=== PATIENT | female | born 2000 | race Caucasian/White ===

== ENCOUNTER → 2023-05-10 08:53 | Outpatient (BNVA) | payer MEDICAID, SELFPAY | PROVIDERS: Visit Provider Nurse Practitioner Women's Health | DX: Z34.90 Encounter for supervision of normal pregnancy, unspecified, unspecified trimester (principal) | CPT/HCPCS: 80307; 81025; 84443; 85025; 86592; 86762; 86803; 86850; 86900; 87077; 87086; 87184; 87340; 87806 ==

== ENCOUNTER → 2023-05-30 11:10 | Outpatient (BNVA) | payer MEDICAID, SELFPAY | PROVIDERS: Visit Provider Obstetrics & Gynecology | DX: Z36.87 Encounter for antenatal screening for uncertain dates (principal) | CPT/HCPCS: 76815 ==

== ENCOUNTER → 2023-06-08 08:15 | Outpatient (BNVA) | payer MEDICAID, SELFPAY | PROVIDERS: Visit Provider Nurse Practitioner Women's Health | DX: Z34.90 Encounter for supervision of normal pregnancy, unspecified, unspecified trimester (principal) | CPT/HCPCS: 81000; 82105; 87077; 87086; 87184 ==

== ENCOUNTER → 2023-06-20 07:59 | Outpatient (BNVA) | payer MEDICAID, SELFPAY | PROVIDERS: Visit Provider Obstetrics & Gynecology | DX: O09.899 Supervision of other high risk pregnancies, unspecified trimester (principal); Z3A.00 Weeks of gestation of pregnancy not specified | CPT/HCPCS: 76805 ==

== ENCOUNTER → 2023-07-18 08:08 | Outpatient (BNVA) | payer MEDICAID, SELFPAY | PROVIDERS: Visit Provider Nurse Practitioner Women's Health | DX: Z36.9 Encounter for antenatal screening, unspecified | CPT/HCPCS: 76816 ==

== ENCOUNTER → 2023-07-20 07:55 | Outpatient (BNVA) | payer MEDICAID, SELFPAY | PROVIDERS: Visit Provider Obstetrics & Gynecology | DX: O09.899 Supervision of other high risk pregnancies, unspecified trimester (principal) | CPT/HCPCS: 81000; 82950 ==

== ENCOUNTER → 2023-08-04 07:54 | Outpatient (BNVA) | payer MEDICAID, SELFPAY | PROVIDERS: Visit Provider Obstetrics & Gynecology | DX: O09.899 Supervision of other high risk pregnancies, unspecified trimester (principal) | CPT/HCPCS: 81000; 85025 ==

== ENCOUNTER → 2023-08-17 07:54 | Outpatient (BNVA) | payer MEDICAID, SELFPAY | PROVIDERS: Visit Provider Obstetrics & Gynecology | DX: O09.899 Supervision of other high risk pregnancies, unspecified trimester (principal) | CPT/HCPCS: 81000; 85025 ==

== ENCOUNTER → 2023-08-28 08:14 | Outpatient (BNVA) | payer MEDICAID, SELFPAY | PROVIDERS: Visit Provider Obstetrics & Gynecology | DX: Z36.9 Encounter for antenatal screening, unspecified (principal) | CPT/HCPCS: 76816 ==

== ENCOUNTER → 2023-09-07 08:03 | Outpatient (BNVA) | payer MEDICAID, SELFPAY | PROVIDERS: Visit Provider Obstetrics & Gynecology | DX: O09.899 Supervision of other high risk pregnancies, unspecified trimester (principal) | CPT/HCPCS: 81000 ==

== ENCOUNTER 2023-10-09 01:33 | Outpatient (CLI) | payer MEDICAID, SELFPAY ==
[2023-10-09 01:33] VITALS: BMI 36.2
[2023-10-09 01:46] VITALS: BP 128/80; PULSE 80
[2023-10-09 02:02] VITALS: BP 116/80; PULSE 82
[2023-10-09 02:33] VITALS: BP 117/80; PULSE 92
[2023-10-09 02:40] VITALS: BP 130/88; PULSE 88
[2023-10-09 02:55] VITALS: BP 130/80; PULSE 88
== END 2023-10-09 02:52 | disposition home or self-care (01) ==
LOC: OPOB 01:42 → OBGYN 01:43
PROVIDERS: Visit Provider Obstetrics & Gynecology
DX: O26.899 Other specified pregnancy related conditions, unspecified trimester (principal); Z3A.00 Weeks of gestation of pregnancy not specified; R10.9 Unspecified abdominal pain
CPT/HCPCS: 59025; 99211

== ENCOUNTER → 2023-10-19 08:25 | Outpatient (BNVA) | payer MEDICAID, SELFPAY | PROVIDERS: Visit Provider Obstetrics & Gynecology | DX: O09.899 Supervision of other high risk pregnancies, unspecified trimester (principal) | CPT/HCPCS: 81000; 87081 ==

== ENCOUNTER 2023-10-26 10:24 | Outpatient (CLI) | payer MEDICAID, SELFPAY ==
[2023-10-26 10:25] VITALS: BMI 35.2
[2023-10-26 10:39] VITALS: BP 133/88; PULSE 120
[2023-10-26 11:00] VITALS: BP 125/74; PULSE 101
[2023-10-26 11:19] VITALS: BP 120/75; PULSE 82
[2023-10-26 11:55] VITALS: BP 129/74; PULSE 84
[2023-10-26 12:31] VITALS: BP 129/74; PULSE 84
== END 2023-10-26 12:32 | disposition home or self-care (01) ==
LOC: OPOB 10:25 → OBGYN 10:32
PROVIDERS: Visit Provider Obstetrics & Gynecology
DX: O26.899 Other specified pregnancy related conditions, unspecified trimester (principal); Z3A.00 Weeks of gestation of pregnancy not specified; R10.9 Unspecified abdominal pain
CPT/HCPCS: 59025; 81000; 99211

== ENCOUNTER 2023-11-01 05:26 | Inpatient (IN) | payer MEDICAID, SELFPAY ==
[2023-11-01] VITALS (19 sets, daily range): BP systolic 106–151; BP diastolic 72–87; PULSE 77–106; RESP 18; TEMP 35.1–36.7; O2SAT 98; BMI 36.1
[2023-11-01] MEDS: lactated ringers 1,000 ML 999 ML IV (06:15)
--- NOTE | 2023-11-01 06:50 | P.HP_ITS ---
Providers/Chief Complaint 2 Admitting Physician: Yahir Gregory MD Primary SHADE BANDER: Ike William MD Chief Complaint: contractions HPI SHADE BANDER History of Present Illness Chuyita Celestin is a 23 year old female EDC November 07, 2023 at 39 w 1 d no complications h/o x one presented to L&D c/o painful uterine contractions Present Details : 2 Para: 1 Labs Rubella: Immune RPR: Negative GBS: Negative Medications/Allergies Home Medications Medication Instructions Recorded Confirmed Last Taken Type PNV 153-FA 400 mcg-om3 35 mg-dha tab PO 06/08/23 10/26/23 Unknown History 25 mg-epa 5 mg-fish oil chew tablet ( Gummies) Allergies Allergy/AdvReac Type Severity Reaction Status Date / Time No Known Allergies Allergy Verified 11/01/23 07:32 PFSH SHADE BANDER 2 PFSH: Medical History No pertinent past medical history neghx: htn,dm,thyroid,dvt/pe PCP: None Surgical History History of tonsillectomy and adenoidectomy Family History Grandfather Breast cancer Colon cancer Stroke Mother Uterine cancer Grandmother Hypertension Diabetes Stroke Thyroid disease Denies family history of Ovarian cancer Prostate cancer Heart disease Hyperlipidemia Social History Smoking and tobacco/nicotine status: current every day tobacco/nicotine user History History History 2 2 Term 0 1 Miscarriages/Ectopic 0 Living Children 1 Care YUMIKO Calculator 2 Estimated Delivery Date Method Current WG Current Estimate 11/07/23 LMP (Certain) 39w 1d Other Estimates 11/11/23 Ultrasound #1 38w 4d Specific Issues/Plans * Early delivery?? req records 06/08/23 * UTI at 14 weeks; treated with keflex; mora at 18 wks * Tobacco use * Marijuana use * Late care Vitals/I&O/Wt Last Vital Signs Temp 95.2 F L 11/01/23 06:19 Pulse 96 11/01/23 09:36 BP 122/72 11/01/23 09:36 O2 Del Method Room Air 11/01/23 06:36 10/31/23 11/01/23 11/01/23 22:59 06:59 14:59 Intake Total 1500 / 1500 Balance 1500 / 1500 Weight last 48 hrs Weight 217 lb Physical Exam 2 Narrative: Weight 217 lbs; 5'5 VS normal General: in discomfort due to uterine contractions; awake, alert HEENT: normal Lungs: clear Cor: RRR Abd: nontender Cervix: 6 cm / 90% / -1 / cephalic Ext: normal External monitor: heart tracing good variability, + accelerations Data 11/01/23 06:51 Results Labs OB ([facility]): 2 Obstetrics US 08/28/23 Blood Type O Positive 11/01/23 Antibody Screen Negative 11/01/23 Hct 43.2 % (36-47) 11/01/23 Hgb 13.70 g/dL (11.27-16.99) 11/01/23 Rho(D) Type Rh positive 11/01/23 Plt Count 136 10^3/cmm (157-399) L 11/01/23 Hep Bs Antigen Non-reactive (Nonreactive) 05/10/23 Hepatitis C Antibody Non-reactive (Nonreactive) 05/10/23 Rubella IgG Antibody 373.3 IU/mL (0.0-10.0) H 05/10/23 RPR Nonreactive (Nonreactive) 05/10/23 HIV 1&2 Ab & HIV 1 Ag Non-reactive (Non-Reactiv) 05/10/23 TSH 2.37 uIU/mL (0.27-4.20) 05/10/23 Cystic Fibrosis Screen Negative 06/08/23 Gest Glucose Tolerance 115 mg/dL (70-139) 07/20/23 HCG, Qual Positive (Negative) H 05/10/23 Urine Opiates Screen Negative ng/mL (Negative) 11/01/23 Ur Barbiturates Screen Negative ng/mL (Negative) 11/01/23 Ur Phencyclidine Scrn Negative ng/mL (Negative) 11/01/23 Ur Amphetamines Screen Negative ng/mL (Negative) 11/01/23 U Benzodiazepines Scrn Negative ng/mL (Negative) 11/01/23 Urine Cocaine Screen Negative ng/mL (Negative) 11/01/23 U Marijuana (THC) Screen Positive ng/mL (Negative) H Micro Urine Specimen 06/08/23 A&P Assessment and plan (1) Active labor at term: 39 w 1 d active labor anticipate vaginal delivery fetus reassuring Attestations 2 Medical Necessity Statement*: patient at term in active labor Coding Level of Care Code Acute Code for Chg Fwd Diagnoses Active labor at term Time Spent (min) 30
[2023-11-01 06:59] LABS: Basophils # 0.1 10^3/uL (0.0-0.1); Basophils % 0.3 %; Eosinophils # 0.1 10^3/uL (0.0-0.8); Eosinophils % 0.2 %; Hematocrit 43.2 % (36-47); Lymphocytes # 2.8 10^3/uL (0.8-4.8); Lymphocytes % 13.7 %; Mean Corpuscular HGB Conc 31.7 g/dL (30-55); Mean Corpuscular Hemoglobin 29.1 pg (27-33); Mean Corpuscular Volume 91.7 fl (85-98); Mean Platelet Volume 13.9 fL (7.4-10.4); Monocytes # 1.8 10^3/uL (0.2-0.9); Neutrophils # 15.43 10^3/uL (1.8-7.7); Neutrophils % 76.4 %; Nucleated Red Blood Cells % 0 %; Platelet Count 136 10^3/cmm (157-399); Red Blood Count 4.71 10^6/uL (3.85-5.65); Red Cell Distribution Width 14.6 % (12.1-15.1); White Blood Count 20.24 10^3/uL (3.29-11.43)
[2023-11-01] MEDS: dextrose 5%-lactated ringers 1,000 ML 125 ML IV (07:44)
[2023-11-01] MEDS: lidocaine 2% INJ 20 mL INJECTION (07:45)
[2023-11-01] MEDS: oxytocin 30 UNIT/500 ML BAG 600 UNIT IV (07:46)
--- NOTE | 2023-11-01 07:50 | PM.DELIVERY ---
Delivery Note: Date of delivery: November 01, 2023 Pre-delivery diagnoses: 39 w 1 d active labor Post-delivery diagnoses: 39 w 1 d active labor vaginal delivery repair of second-degree perineal laceration Procedure: vaginal delivery repair of second-degree perineal laceration Op report anesthesia: None Delivering Physician: Yahir Gregory MD Estimated blood loss (mL): 300 Findings: vigorous infant normal placenta and cord second-degree perineal laceration repaired superficial periurethral laceration not repaired, hemostatic Pre-Delivery Course: rapid labor Delivery: precipitous vaginal delivery Post-Delivery Status: good History History History 2 Term 0 1 Miscarriages/Ectopic 0 Living Children 1 A&P Assessment and plan (1) Vaginal delivery: Coding Level of Care Code Acute Code for Chg Fwd Diagnoses Vaginal delivery O80 Time Spent (min) 60
[2023-11-01 08:09] LABS: Amphetamines Screen Urine Negative (Negative); Barbiturates Screen Urine Negative (Negative); Benzodiazepines Screen Urine Negative (Negative); Cocaine Screen Urine Negative (Negative); Opiate Screen Urine Negative (Negative); PCP Screen Urine Negative (Negative); THC Screen Urine Positive (Negative)
--- NOTE | 2023-11-01 08:13 | PC.NURSE ---
Mary Jay RN was at bedside with pt, as well as Mary Ag RN and Mary Guajardo RN @0655 when pt was checked by Mary Jay RN and noted to be an anterior lip and pushy. Dr. Gregory was notified at 0658 by Jania Garcia RN and was told to hurry for delivery due to pt SVE and pt feeling pushy. head started crowing at 0700, Mary Jay RN and Mary Guajardo RN placed gentle counter pressure on head and came out, Infant was then placed on mother by Mary Guajardo and Mary Jay RN, where infant was dried and stimulated. was noted to have lots of fluid on the lungs by Mary Guajardo RN so cord was clamped and cut and was taken to warmer by Mary Guajardo RN. Infant was deleed and 10 ml of clear pink tinged fluid was suctioned off of lungs. Infant color started to pink up and was crying. Measurements and weight were then taken of infant. Dr. Gregory arrived to room at about 0712. Placenta was delivered by Dr. Gregory at 0715. Pt was noted by Dr. Gregory to have a second degree laceration that was repaired.
--- OUTSIDE RECORDS SUMMARY | 2023-11-01 09:42 | XMS_ITS | Continuity of Care Document ---
Author Name Unknown Organization [facility] Address [address] [place] [address]- Encounter [employer] Number [id number] Date(s): 08/21/23 - 08/21/23 [facility] [address] [place] [address]- Attending Physician: Xochitl Tran MD Admitting Physician: Referring, DR Lemus Problem List Condition Confirmation Course Effective Dates Status Health [facility] Informant Confirmed 01/31/23 Active Social History Social History Type Response Sex Female
--- NOTE | 2023-11-01 10:41 | PC.NURSE ---
Moved to room with baby.
[2023-11-01] MEDS: PRENATAL VIT NO.130/IRON/FOLIC 1 EACH TABLET PO (10:53)
[2023-11-01] MEDS: docusate sodium 100 mg Capsule PO ×2 (10:54→18:47)
[2023-11-01] MEDS: ibuprofen 800 mg tablet PO ×3 (10:54→20:42)
[2023-11-01] MEDS: benzocaine-menthol 78 gm Canister 1 SPRAY TOPICAL (15:06)
--- NOTE | 2023-11-01 15:20 | PC.NURSE ---
DFS and this nurse at bedside to discuss hotline call.
[2023-11-01 19:42] LABS: Hematocrit 28.7 % (36-47); Mean Corpuscular HGB Conc 33.4 g/dL (30-55); Mean Corpuscular Hemoglobin 29.4 pg (27-33); Mean Corpuscular Volume 87.8 fl (85-98); Platelet Count 122 10^3/cmm (157-399); Red Blood Count 3.27 10^6/uL (3.85-5.65); Red Cell Distribution Width 14.5 % (12.1-15.1); White Blood Count 15.64 10^3/uL (3.29-11.43)
[2023-11-02 06:02] VITALS: BP 121/79; PULSE 88; RESP 16; TEMP 36.8; O2SAT 98
[2023-11-02] MEDS: PRENATAL VIT NO.130/IRON/FOLIC 1 EACH TABLET PO (08:15)
[2023-11-02] MEDS: ibuprofen 800 mg tablet PO (08:15)
[2023-11-02] MEDS: docusate sodium 100 mg Capsule PO (08:15)
[2023-11-02 08:24] VITALS: BP 124/86; PULSE 93; RESP 16; TEMP 36.6; TEMP 36.7; O2SAT 97
--- NOTE | 2023-11-02 12:05 | P.PN_ITS ---
HYDROGRAPHICAL TECHNICAL OFFICER Subjective 2 Subjective: Interval history: no c/o no bleeding, pain eating, voiding, ambulating well caring for without any problems Labor: Station: +2 Amniotic Membrane Status: Intact Monitor Mode: External Contraction Pattern: Regular Vitals/I&O/Wt Last Vital Signs Temp 98 F 11/02/23 15:00 Pulse 92 11/02/23 15:00 Resp 16 11/02/23 15:00 BP 114/75 11/02/23 15:00 Pulse Ox 98 11/02/23 15:00 O2 Del Method Room Air 11/02/23 08:24 Weight last 48 hrs Weight 217 lb Physical Exam 2 Narrative: afebrile, VS normal comfortable, awake, alert Abd: soft, nontender. fundus firm Ext: no edema; nontender Data 11/01/23 19:25 A&P Assessment and plan (1) Vaginal delivery: PPD #1 doing well discharge to home today instructions and precautions given call/return if fever, chills, headache, blurry vision, nausea, vomiting, abdominal pain; vaginal bleeding or discharge; shortness of breath, chest pain, leg pains or swelling; inability to void, perineal pain or swelling; feelings of depression or mood changes; thoughts of suicide or harming others; inability to care for baby. f/u in 6 weeks or PRN Attestations 2 Medical Necessity Statement*: patient s/p vaginal delivery, plan to discharge to home today Coding Level of Care Code Acute Code for Chg Fwd Diagnoses Vaginal delivery O80 Time Spent (min) 20
--- NOTE | 2023-11-02 12:10 | PM.OBGYDC ---
Discharge Providers EDI SPECIALIST Date of Admission: 11/01/23 05:26 Date of Discharge: 11/02/23 Attending Provider at Admission: Yahir Gregory MD Attending Provider at Discharge: Yahir Gregory MD Consults: none Primary EDI SPECIALIST: Ike William MD Diagnoses at Discharge Discharge Diagnosis (1) Vaginal delivery: Details from hospital stay: 23 y.o. at 39 w 1 d no complications presented to L&D c/o painful uterine contractions Cervix was 6 cm on admission patient progressed to complete had spontaneous vaginal delivery of vigorous infant and repair of second-degree perineal laceration without any complications patient did well and was discharged to home on the first day Status: Acute Reason for Visit Reason for Visit: contractions Brief History: 23 y.o. at 39 w 1 d no complications presented to L&D c/o painful uterine contractions Cervix was 6 cm on admission Hospital Course Hospital Course 23 y.o. at 39 w 1 d no complications presented to L&D c/o painful uterine contractions Cervix was 6 cm on admission patient progressed to complete had spontaneous vaginal delivery of vigorous infant and repair of second-degree perineal laceration without any complications patient did well and was discharged to home on the first da Information Peripartum Data: Delivery Method: Vaginal Laceration description: Perineal - 2nd Degree Episiotomy description: None complications: none Physical Exam Narrative: afebrile, VS normal comfortable, awake, alert Abd: soft, nontender. fundus firm Ext: no edema; nontender History History History 2 Term 0 1 Miscarriages/Ectopic 0 Living Children 1 Discharge Data Studies Completed and Pending Laboratory Results WBC 15.64 10^3/uL (3.29-11.43) H 11/01/23 19:25 Corrected WBC Cancelled 11/01/23 05:45 RBC 3.27 10^6/uL (3.85-5.65) L 11/01/23 19:25 Hgb 9.60 g/dL (11.27-16.99) L 11/01/23 19:25 Hct 28.7 % (36-47) L D 11/01/23 19:25 MCV 87.8 fl (85-98) 11/01/23 19:25 MCH 29.4 pg (27-33) 11/01/23 19:25 MCHC 33.4 g/dL (30-55) D 11/01/23 19:25 RDW 14.5 % (12.1-15.1) 11/01/23 19:25 Plt Count 122 10^3/cmm (157-399) L 11/01/23 19:25 MPV 14.0 fL (7.4-10.4) H 11/01/23 19:25 Gran % Cancelled 11/01/23 05:45 Neut % (Auto) 76.4 % 11/01/23 06:51 Lymph % (Auto) 13.7 % 11/01/23 06:51 [place] % (Auto) 9.0 % 11/01/23 06:51 Eos % (Auto) 0.2 % 11/01/23 06:51 Baso % (Auto) 0.3 % 11/01/23 06:51 Neut # (Auto) 15.43 10^3/uL (1.8-7.7) H 11/01/23 06:51 Lymph # (Auto) 2.8 10^3/uL (0.8-4.8) 11/01/23 06:51 [place] # (Auto) 1.8 10^3/uL (0.2-0.9) H 11/01/23 06:51 Eos # (Auto) 0.1 10^3/uL (0.0-0.8) 11/01/23 06:51 Baso # (Auto) 0.1 10^3/uL (0.0-0.1) 11/01/23 06:51 Absolute Gran (auto) Cancelled 11/01/23 05:45 Nucleated RBC % (auto) 0 % 11/01/23 06:51 Nucleated RBCs # 0.0 /100WBC 11/01/23 06:51 Urine Opiates Screen Negative ng/mL (Negative) 11/01/23 06:32 Ur Barbiturates Screen Negative ng/mL (Negative) 11/01/23 06:32 Ur Phencyclidine Scrn Negative ng/mL (Negative) 11/01/23 06:32 Ur Amphetamines Screen Negative ng/mL (Negative) 11/01/23 06:32 U Benzodiazepines Scrn Negative ng/mL (Negative) 11/01/23 06:32 Urine Cocaine Screen Negative ng/mL (Negative) 11/01/23 06:32 U Marijuana (THC) Screen Positive ng/mL (Negative) H 11/01/23 06:32 Blood Type O Positive 11/01/23 05:45 Rho(D) Type Rh positive 11/01/23 05:45 Antibody Screen Negative 11/01/23 05:45 Procedures Performed vaginal delivery repair of second-degree perineal laceration Vitals Last Vital Signs Temp 98 F 11/02/23 15:00 Pulse 92 11/02/23 15:00 Resp 16 11/02/23 15:00 BP 114/75 11/02/23 15:00 Pulse Ox 98 11/02/23 15:00 O2 Del Method Room Air 11/02/23 08:24 Results Labs OB ([facility]): Obstetrics US 08/28/23 Blood Type O Positive 11/01/23 Antibody Screen Negative 11/01/23 Hct 28.7 % (36-47) L 11/01/23 Hgb 9.60 g/dL (11.27-16.99) L 11/01/23 Rho(D) Type Rh positive 11/01/23 Plt Count 122 10^3/cmm (157-399) L 11/01/23 Hep Bs Antigen Non-reactive (Nonreactive) 05/10/23 Hepatitis C Antibody Non-reactive (Nonreactive) 05/10/23 Rubella IgG Antibody 373.3 IU/mL (0.0-10.0) H 05/10/23 RPR Nonreactive (Nonreactive) 05/10/23 HIV 1&2 Ab & HIV 1 Ag Non-reactive (Non-Reactiv) 05/10/23 TSH 2.37 uIU/mL (0.27-4.20) 05/10/23 Cystic Fibrosis Screen Negative 06/08/23 Gest Glucose Tolerance 115 mg/dL (70-139) 07/20/23 HCG, Qual Positive (Negative) H 05/10/23 Urine Opiates Screen Negative ng/mL (Negative) 11/01/23 Ur Barbiturates Screen Negative ng/mL (Negative) 11/01/23 Ur Phencyclidine Scrn Negative ng/mL (Negative) 11/01/23 Ur Amphetamines Screen Negative ng/mL (Negative) 11/01/23 U Benzodiazepines Scrn Negative ng/mL (Negative) 11/01/23 Urine Cocaine Screen Negative ng/mL (Negative) 11/01/23 U Marijuana (THC) Screen Positive ng/mL (Negative) H 11/01/23 Micro Urine Specimen 06/08/23 Discharge Plan Discharge Patient Disposition: Home Condition: Stable Prescriptions: Continued Gummies 400 mcg-35 mg- 25 mg-5 mg tablet,chewable 1 tab PO DAILY Discharge Orders: Discharge Order (Routine); Ordered 11/02/23 Ordered By: Yahir Gregory Referrals: Yahir Gregory MD [Physician] - 12/13/23 10:45 am Discharge Diet: Usual diet Discharge Activity: Increase activity as tolerated Patient Instructions: Depression (DC), Bleeding (DC), Preeclampsia and Eclampsia After Delivery (GEN), Hemorrhage (DC), OB Discharge Report, OB Food/Drug Interaction Guide, Opioid Safety, OB Home Care, OB Proud Parent Packet, OB Vaginal Deliveries - [facility] Discharge Attestations EDI SPECIALIST Time Spent in Discharge Care*: less than 30 min Coding Level of Care Code Acute Code for Chg Fwd Diagnoses Vaginal delivery O80 Time Spent (min) 20
[2023-11-02 15:00] VITALS: BP 114/75; PULSE 92; RESP 16; TEMP 36.6; O2SAT 98
== END 2023-11-02 15:05 | disposition home or self-care (01) | DRG 807 ==
LOC: OPOB 09:40 → OBGYN 09:40
PROVIDERS: Admitting Provider Obstetrics & Gynecology; Visit Provider Obstetrics & Gynecology
DX: O62.3 Precipitate labor (principal); Z37.0 Single live birth; Z3A.39 39 weeks gestation of pregnancy; O70.1 Second degree perineal laceration during delivery; O71.82 Other specified trauma to perineum and vulva
CPT/HCPCS: 36415; 59025; 59409; 80306; 85025; 85027; 86850; 86900; 99211; J2590; J7120; J7121